=== PATIENT | male | born 2000 | race American Indian/Alaskan Native ===

== ENCOUNTER 2018-08-14 08:56 | Emergency (ER) | payer OTHER ==
[2018-08-14] MEDS ORDERED: PEPCID PO ONE (09:21)
[2018-08-14] MEDS ORDERED: DELTASONE PO ONE (09:21)
--- NOTE | 2018-08-14 09:21 | Emergency Department Report ---
ED General Adult HPI - General Chief complaint: Allergic Reaction Stated complaint: EYES SWOLLEN/POSS ALLERGIC REACTION Time Seen by Provider: 08/14/18 09:16 Source: patient, family, RN notes reviewed Mode of arrival: Ambulatory Limitations: No Limitations - History of Present Illness Initial comments: This is a 18-year-old gentleman. The patient is not known to this provider previously. The patient reports that he does not have a primary care doctor. The patient reports no chronic medical conditions. The patient presents to the emergency room with a complaint of sudden nontraumatic bilateral periorbital swelling, and sensation of neck tightness. The symptoms have been going on for around 12 hours. They're constant. There are improving. He took [id number] Benadryl at 1:00 in the morning. He denies headache, neck pain, chest pain, abdominal pain, shortness of breath, rash. No new travel, cream, colognes, or detergent. Patient and family are not certain of any new potential inciting agent. -: Sudden Location: head, neck Consistency: constant Improves with: none Worsens with: none - Related Data Previous Rx's Medication Instructions Recorded Last Taken Type EPINEPHrine [Epipen 2-Dat] 0.3 mg IM DAILY PRN #2 ml 08/14/18 Unknown Rx Famotidine [Pepcid] 20 mg PO BID #10 tablet 08/14/18 Unknown Rx diphenhydrAMINE [Benadryl] 25 mg PO Q8HR PRN #20 capsule 08/14/18 Unknown Rx predniSONE [Deltasone] 40 mg PO QDAY #8 tab 08/14/18 Unknown Rx Allergies Allergy/AdvReac Type Severity Reaction Status Date / Time No Known Allergies Allergy Unverified 08/14/18 09:29 ED Review of Systems ROS: Stated complaint: EYES SWOLLEN/POSS ALLERGIC REACTION Other details as noted in HPI Constitutional: denies: fever Eyes: denies: eye pain, eye discharge, vision change ENT: other (patient feels like his throat is tight. There is no dysphonia.). denies: ear pain, dental pain, hearing loss, epistaxis, congestion Respiratory: denies: cough Cardiovascular: denies: chest pain, palpitations Gastrointestinal: denies: abdominal pain, nausea, vomiting, diarrhea, hematemesis, melena Genitourinary: denies: dysuria Musculoskeletal: denies: back pain, arthralgia, myalgia Skin: denies: rash, lesions Neurological: denies: headache, weakness, numbness, paresthesias, confusion, abnormal gait, vertigo ED Past Medical Hx - Past Medical History Previous Medical History?: No - Surgical History Past Surgical History?: No - Medications Home Medications: Home Medications Medication Instructions Recorded Confirmed Last Taken Type EPINEPHrine [Epipen 2-Dat] 0.3 mg IM DAILY PRN #2 ml 08/14/18 Unknown Rx Famotidine [Pepcid] 20 mg PO BID #10 tablet 08/14/18 Unknown Rx diphenhydrAMINE [Benadryl] 25 mg PO Q8HR PRN #20 capsule 08/14/18 Unknown Rx predniSONE [Deltasone] 40 mg PO QDAY #8 tab 08/14/18 Unknown Rx ED Physical Exam - General Limitations: No Limitations General appearance: alert, in no apparent distress - Head Head exam: Present: atraumatic, normocephalic - Eye Eye exam: Present: PERRL, EOMI, periorbital swelling (there is nontender bilateral periorbital swelling.). Absent: normal appearance, scleral icterus, conjunctival injection, nystagmus - ENT ENT exam: Present: normal exam, normal orophraynx, mucous membranes moist, normal external ear exam, other (the patient is speaking in full sentences. There is no stridor. There is no dysphonia. There is no elevation of the base of the tongue.) - Neck Neck exam: Present: normal inspection, full ROM. Absent: tenderness, meningismus - Respiratory Respiratory exam: Present: normal lung sounds bilaterally. Absent: respiratory distress - Cardiovascular Cardiovascular Exam: Present: normal rhythm, bradycardia, normal heart sounds. Absent: tachycardia, irregular rhythm, systolic murmur, diastolic murmur, rubs, gallop - GI/Abdominal GI/Abdominal exam: Present: soft. Absent: distended, tenderness, guarding, rebound, rigid, pulsatile mass - Rectal Rectal exam: Present: deferred - Extremities Exam Extremities exam: Present: normal inspection, full ROM, normal capillary refill, other (2+ pulses noted in the bilateral upper, lower extremities. Compartments soft. No long bony tenderness. The pelvis is stable.). Absent: pedal edema, joint swelling, calf tenderness - Back Exam Back exam: Present: normal inspection, full ROM. Absent: tenderness, CVA tenderness (R), paraspinal tenderness - Neurological Exam Neurological exam: Present: alert, oriented X3, other (Extraocular movements intact. Tongue midline. No facial droop. Facial sensation intact to light touch in the V1, V2, V3 distribution bilaterally. 5 and 5 strength in 4 extremities.. Sensation is intact to light touch in 4 extremities.). Absent: motor sensory deficit - Psychiatric Psychiatric exam: Present: normal affect, normal mood - Skin Skin exam: Present: warm, dry, intact, normal color. Absent: rash ED Course Vital Signs 08/14/18 08/14/18 08:58 11:26 Temperature 97.5 F L Pulse Rate 52 L 51 L Respiratory 18 16 Rate Blood Pressure 143/67 Blood Pressure 134/92 [Left] O2 Sat by Pulse 98 100 Oximetry - Reevaluation(s) Reevaluation #1: 08/14/18 10:57 Differential diagnosis, including but not limited to: Allergies Assessment and plan: 18-year-old gentleman with nontraumatic bilateral periorbital swelling, and reported sensation of throat discomfort. The patient is afebrile with reassuring vital signs with no stridor. He is resting comfortably in his stretcher. Skin examination is unremarkable. Pulmonary examination is unremarkable Patient was treated appropriately with H2 antagonists and steroids. No obvious renal or hepatic insufficiency noted on laboratory studies. Glucose of 73 reviewed and appreciated. Patient given fluid by mouth, and Accu-Chek improved. Patient medically suitable to follow up with an outpatient primary care doctor or market research specialist for dedicated skin testing. 08/14/18 11:00 Reevaluation #2: 08/14/18 11:42 Patient feeling improved. No acute distress. Repeat vital signs appreciated. Tolerating oral feeds without difficulty. Suitable for discharge at this point in time with outpatient follow-up ED Medical Decision Making - Lab Data Result diagrams: 08/14/18 09:40 Vital Signs 08/14/18 08:58 Temperature 97.5 F L Pulse Rate 52 L Respiratory 18 Rate Blood Pressure 143/67 O2 Sat by Pulse 98 Oximetry Lab Results 08/14/18 Range/Units 09:40 Sodium 142 (137-145) mmol/L Potassium 4.1 (3.6-5.0) mmol/L Chloride 106.8 (98-107) mmol/L Carbon Dioxide 26 (22-30) mmol/L Anion Gap 13 mmol/L BUN 10 (9-20) mg/dL Creatinine 1.0 (0.8-1.5) mg/dL Estimated GFR > 60 ml/min BUN/Creatinine Ratio 10 % Glucose 73 L (75-100) mg/dL Calcium 8.4 (8.4-10.2) mg/dL Magnesium 2.00 (1.7-2.3) mg/dL Total Bilirubin < 0.20 (0.1-1.2) mg/dL AST 17 (5-40) units/L ALT 11 (7-56) units/L Alkaline Phosphatase 64 (35-129) units/L Total Creatine Kinase 270 H (55-170) units/L Total Protein 6.0 L (6.3-8.2) g/dL Albumin 3.6 L (3.9-5) g/dL Albumin/Globulin Ratio 1.5 % Respirations on my exam 12-15 breaths per minute Critical care attestation.: If time is entered above; I have spent that time in minutes in the direct care of this critically ill patient, excluding procedure time. ED Disposition Clinical Impression: Allergic reaction Disposition: DC-01 TO HOME OR SELFCARE Is pt being admited?: No Does the pt Need Aspirin: No Condition: Good Instructions: Anaphylaxis (ED) Additional Instructions: Take the medications as needed/directed. Do not use the epinephrine pen unless patient develops the inability to speak, or inability to breathe or inability to talk. If any of these symptoms develop, use the epinephrine pen as directed, and contact 911 right away. Patient most likely experiencing an allergic reaction. Many things can cause allergies. I recommend the patient follow up with an market research specialist or automobile service station manager within the next 4 weeks for dedic ated skin testing to ascertain causative agent of patient's allergies. Follow up with her primary care doctor within the next 6-8 weeks for general medical care. Please return to the emergency room right away with new, worsening or different symptoms, or symptoms not present on the initial ER evaluation. Prescriptions: diphenhydrAMINE [Benadryl] 25 mg PO Q8HR PRN #20 capsule PRN Reason: Allergic Reaction predniSONE [Deltasone] 40 mg PO QDAY #8 tab EPINEPHrine [Epipen 2-Dat] 0.3 mg IM DAILY PRN #2 ml PRN Reason: Allergic Reaction Famotidine [Pepcid] 20 mg PO BID #10 tablet Referrals: SILVA HERNANDEZ MD [Referring] - 3-5 Days JESSICA RAMIREZ MD [Referring] - 3-5 Days REI BROOKS MD [Staff Physician] - 3-5 Days [facility] [Provider Group] - 3-5 Days Forms: Accompanied Note, Work/School Release Form(ED)
[2018-08-14 10:27] LABS: Alanine Aminotransferase 11 units/L (7-56); Albumin 3.6 g/dL (3.9-5); BUN/Creatinine Ratio 10; Blood Urea Nitrogen 10 mg/dL (9-20); Calcium 8.4 mg/dL (8.4-10.2); Hemolysis Index 20
[2018-08-14 11:27] VITALS: BP 134/92
== END 2018-08-14 12:19 | disposition home or self-care (01) ==
LOC: ED 08:56
DX: T78.40XA Allergy, unspecified, initial encounter (principal); M54.2 Cervicalgia; X58.XXXA Exposure to other specified factors, initial encounter
CPT/HCPCS: 36415; 80053; 82550; 82962; 83735; 99283; J7512

== ENCOUNTER 2018-10-13 21:27 | Emergency (ER) | payer OTHER ==
[2018-10-13] MEDS ORDERED: BOOSTRIX IM ONE (22:42)
--- NOTE | 2018-10-13 22:43 | Event Note ---
ED Screening Note Date of service: 10/13/18 Time: 22:38 ED Screening Note: This is a 18 y.o. M. that presents to the ER with laceration to right palm while opening a can at home around 2029. Tetanus not UTD. Current smoker. This initial assessment/diagnostic orders/clinical plan/treatment(s) is/are subject to change based on patients health status, clinical progression and re- assessment by fellow clinical providers in the ED. Further treatment and workup at subsequent clinical providers discretion. Patient/guardian urged not to elope from the ED as their condition may be serious if not clinically assessed and managed. Initial orders include: XR right hand Boostrix vaccine
--- NOTE | 2018-10-13 23:23 | XRay Report ---
RIGHT HAND 3 VIEWS INDICATION: laceration palm between 1st 2nd metatarsal. COMPARISON: No relevant prior imaging study available. FINDINGS: There is no acute skeletal abnormality. Soft tissue swelling is seen between the index and long finge r metacarpophalangeal articulations. No foreign bodies. IMPRESSION: 1. No fracture or foreign body. Signer Name: Abdirahman Coleman MD Signed: 10/13/2018 11:18 PM Workstation Name: [id number]
[2018-10-14] MEDS ORDERED: TYLENOL #3 PO ONE (03:40)
[2018-10-14] MEDS ORDERED: IBUPROFEN PO ONE (03:40)
[2018-10-14] MEDS ORDERED: XYLOCAINE 1% MPF 5 mL INFILTRATI ONE (03:41)
--- NOTE | 2018-10-14 04:42 | Emergency Department Report ---
- General Chief Complaint: Wound/Laceration Stated Complaint: HAND LAC Time Seen by Provider: 10/13/18 22:38 Source: patient Mode of arrival: Ambulatory Limitations: No Limitations - History of Present Illness Initial Comments: Patient is a 18-year-old -Indian male with no past medical history who presents to the ED with complaint of acute onset persistent severe right palm pain from a bleeding laceration on the right palm after he accidentally cut his right palm when opening a can about 8 hours ago. Patient states that the pain and bleeding have been persistent and intermittent. Patient denies numbness, tingling or weakness of the right hand. The patient also states that he is up-to-date with his tetanus vaccination having received one 2 years ago. Patient denies nausea, vomiting, dizziness, headache, chest pain or shortness of breath. -: Sudden, hour(s) (8) Location: other (right palm laceration) Extremity Location: Right: Hand (Right palm laceration with pain) 1 - Right palm laceration with pain and bleeding Place: home Patient Tetanus UTD: Yes (2 years ago received Tetanus vaccination) Context: accidental Associated Symptoms: pain. denies: loss of feeling/numbness, suspect foreign body present, unable to move injured part, weakness followed by dizziness, nausea/vomiting, fever, other - Related Data Previous Rx's Medication Instructions Recorded Last Taken Type EPINEPHrine [Epipen 2-Dat] 0.3 mg IM DAILY PRN #2 ml 08/14/18 Unknown Rx Famotidine [Pepcid] 20 mg PO BID #10 tablet 08/14/18 Unknown Rx diphenhydrAMINE [Benadryl] 25 mg PO Q8HR PRN #20 capsule 08/14/18 Unknown Rx predniSONE [Deltasone] 40 mg PO QDAY #8 tab 08/14/18 Unknown Rx Acetaminophen/Codeine [Tylenol 1 tab PO Q6H PRN #12 tab 10/14/18 Unknown Rx /Codeine # 3 tab] Ibuprofen [Motrin] 800 mg PO Q6HR PRN #20 tablet 10/14/18 Unknown Rx cephALEXin [Keflex] 500 mg PO Q8HR #30 cap 10/14/18 Unknown Rx Allergies Allergy/AdvReac Type Severity Reaction Status Date / Time No Known Allergies Allergy Unverified 08/14/18 09:29 ED Review of Systems ROS: Stated complaint: HAND LAC Other details as noted in HPI Constitutional: denies: chills, fever Eyes: denies: eye pain, eye discharge, vision change ENT: denies: ear pain, throat pain Respiratory: denies: cough, shortness of breath, wheezing Cardiovascular: denies: chest pain, palpitations Endocrine: no symptoms reported Gastrointestinal: denies: abdominal pain, nausea, diarrhea Genitourinary: denies: urgency, dysuria Musculoskeletal: arthralgia, other (right palm pain due to bleeding laceration). denies: back pain, joint swelling Skin: other (Bleedinfg laceration and pain on right palm). denies: rash, lesions Neurological: denies: headache, weakness, paresthesias Psychiatric: denies: anxiety, depression Hematological/Lymphatic: denies: easy bleeding, easy bruising ED Past Medical Hx - Past Medical History Previous Medical History?: No - Surgical History Past Surgical History?: No - Social History Smoking Status: Current Every Day Smoker - Medications Home Medications: Home Medications Medication Instructions Recorded Confirmed Last Taken Type EPINEPHrine [Epipen 2-Dat] 0.3 mg IM DAILY PRN #2 ml 08/14/18 Unknown Rx Famotidine [Pepcid] 20 mg PO BID #10 tablet 08/14/18 Unknown Rx diphenhydrAMINE [Benadryl] 25 mg PO Q8HR PRN #20 capsule 08/14/18 Unknown Rx predniSONE [Deltasone] 40 mg PO QDAY #8 tab 08/14/18 Unknown Rx Acetaminophen/Codeine [Tylenol 1 tab PO Q6H PRN #12 tab 10/14/18 Unknown Rx /Codeine # 3 tab] Ibuprofen [Motrin] 800 mg PO Q6HR PRN #20 tablet 10/14/18 Unknown Rx cephALEXin [Keflex] 500 mg PO Q8HR #30 cap 10/14/18 Unknown Rx ED Physical Exam - General Limitations: No Limitations General appearance: alert, in no apparent distress - Head Head exam: Present: atraumatic, normocephalic, normal inspection - Eye Eye exam: Present: normal appearance, PERRL, EOMI. Absent: scleral icterus, conjunctival injection, nystagmus Pupils: Present: normal accommodation - ENT ENT exam: Present: normal exam, normal orophraynx, mucous membranes moist, TM's normal bilaterally, normal external ear exam - Neck Neck exam: Present: normal inspection, full ROM - Respiratory Respiratory exam: Present: normal lung sounds bilaterally. Absent: respiratory distress, wheezes, rhonchi, stridor, chest wall tenderness, accessory muscle use, decreased breath sounds, prolonged expiratory - Cardiovascular Cardiovascular Exam: Present: normal rhythm, bradycardia, normal heart sounds. Absent: systolic murmur, diastolic murmur, rubs, gallop - GI/Abdominal GI/Abdominal exam: Present: soft, normal bowel sounds. Absent: tenderness, rebound, hyperactive bowel sounds, hypoactive bowel sounds, organomegaly - Rectal Rectal exam: Present: deferred - Extremities Exam Extremities exam: Present: normal inspection, full ROM, tenderness (Palpable right hand tenderness due to a bleeding 3 cm laceration on right palm), normal capillary refill - Back Exam Back exam: Present: normal inspection, full ROM. Absent: tenderness, CVA tenderness (L), muscle spasm, vertebral tenderness - Neurological Exam Neurological exam: Present: alert, oriented X3, CN II-XII intact, normal gait, reflexes normal - Psychiatric Psychiatric exam: Present: normal affect, normal mood - Skin Skin exam: Present: warm, dry, intact, normal color, other (Bleeding right palm 3 cm laceration). Absent: rash ED Course Vital Signs 10/13/18 22:42 Temperature 98.9 F Pulse Rate 59 L Respiratory 18 Rate Blood Pressure 120/58 O2 Sat by Pulse 97 Oximetry - Reevaluation(s) Reevaluation #1: 10/14/18 04:49 Patient is alert and oriented 3 and is not in distress but pain. Patient was treated for pain in the ED and had the right palm laceration sutured per protocol. Patient tolerated the procedure well after they right palm laceration was anesthetized with a local anesthesia, 1% lidocaine solution. Patient was discharged home on pain medication and prophylactic antibiotics and patient advised to follow up with his primary care physician in 7-10 days for reevaluation. Patient advised to return to the ED immediately if symptoms get worse, otherwise return to the ED or to his primary care physician in 12-14 days for suture removal. ED Medical Decision Making - Medical Decision Making Patient is alert and oriented 3 and is not in distress but pain. Patient was treated for pain in the ED and had the right palm laceration sutured per protocol. Patient tolerated the procedure well after they right palm laceration was anesthetized with a local anesthesia, 1% lidocaine solution. Patient was discharged home on pain medication and prophylactic antibiotics and patient advised to follow up with his primary care physician in 7-10 days for reevaluation. Patient advised to return to the ED immediately if symptoms get worse, otherwise return to the ED or to his primary care physician in 12-14 days for suture removal. - Differential Diagnosis hand laceration; tendon injury, puncture wound Critical care attestation.: If time is entered above; I have spent that time in minutes in the direct care of this critically ill patient, excluding procedure time. ED Disposition Clinical Impression: Laceration of right hand without foreign body Qualifiers: Encounter type: initial encounter Qualified Code(s): S61.411A - Laceration without foreign body of right hand, initial encounter Disposition: TO HOME OR SELFCARE Is pt being admited?: No Does the pt Need Aspirin: No Condition: Stable Instructions: Laceration (ED), Suture Care (ED) Additional Instructions: Take medications with food, drink plenty of fluids and follow-up with your primary care physician in 7-10 days for reevaluation. Return to the ED in 12-14 days for suture removal. Return to the ED immediately if symptoms get worse. Prescriptions: cephALEXin [Keflex] 500 mg PO Q8HR #30 cap Ibuprofen [Motrin] 800 mg PO Q6HR PRN #20 tablet PRN Reason: Pain , Severe (7-10) Acetaminophen/Codeine [Tylenol /Codeine # 3 tab] 1 tab PO Q6H PRN #12 tab PRN Reason: Pain , Severe (7-10) Referrals: [facility] [Outside] - 3-5 Days Time of Disposition: 04:40 Print Language: AUSTRALIAN
[2018-10-14 05:05] VITALS: BP 114/69
== END 2018-10-14 05:08 | disposition home or self-care (01) ==
LOC: ED 21:27
DX: S61.411A Laceration without foreign body of right hand, initial encounter (principal); F17.200 Nicotine dependence, unspecified, uncomplicated; W45.8XXA Other foreign body or object entering through skin, initial encounter; Y93.89 Activity, other specified; Y92.89 Other specified places as the place of occurrence of the external cause; Y99.8 Other external cause status

== ENCOUNTER 2018-10-30 10:43 | Emergency (ER) | payer OTHER ==
[2018-10-30 10:53] VITALS: BP 132/66
--- NOTE | 2018-10-30 11:17 | Emergency Department Report ---
Suture/Staple Removal - [facility] Chief Complaint: Laceration/Recheck/Suture Stated Complaint: SUTURE REMOVAL Time Seen by Provider: 10/30/18 11:13 When Sutures or Humberto Placed: >14 Days Ago Wound Location: Right hand ED Review of Systems ROS: Stated complaint: SUTURE REMOVAL Other details as noted in HPI Comment: All other systems reviewed and negative ED Past Medical Hx - Past Medical History Previous Medical History?: No - Surgical History Past Surgical History?: No - Social History Smoking Status: Current Some Day Smoker Substance Use Type: None, Marijuana - Medications Home Medications: Home Medications Medication Instructions Recorded Confirmed Last Taken Type EPINEPHrine [Epipen 2-Dat] 0.3 mg IM DAILY PRN #2 ml 08/14/18 Unknown Rx Famotidine [Pepcid] 20 mg PO BID #10 tablet 08/14/18 Unknown Rx diphenhydrAMINE [Benadryl] 25 mg PO Q8HR PRN #20 capsule 08/14/18 Unknown Rx predniSONE [Deltasone] 40 mg PO QDAY #8 tab 08/14/18 Unknown Rx Acetaminophen/Codeine [Tylenol 1 tab PO Q6H PRN #12 tab 10/14/18 Unknown Rx /Codeine # 3 tab] Ibuprofen [Motrin] 800 mg PO Q6HR PRN #20 tablet 10/14/18 Unknown Rx cephALEXin [Keflex] 500 mg PO Q8HR #30 cap 10/14/18 Unknown Rx Suture Removal Exam - Exam General: Vital signs noted. No distress. Alert and acting appropriately. Wound: No Pathologic Erythema, No Tenderness, No Drainage, No Pus, No Wound Dehiscence Other Systems: All other systems reviewed and are unremarkable. ED Course Vital Signs 10/30/18 10:50 Temperature 98.0 F Pulse Rate 43 L Respiratory 18 Rate Blood Pressure 132/66 [Left] O2 Sat by Pulse 100 Oximetry ED Recheck MDM - Medical Decision Making 1-year-old male presents with suture removal to the right hand. She is without any problems Critical care attestation.: If time is entered above; I have spent that time in minutes in the direct care of this critically ill patient, excluding procedure time. ED Disposition Clinical Impression: Visit for suture removal Disposition: DC-01 TO HOME OR SELFCARE Is pt being admited?: No Does the pt Need Aspirin: No Condition: Stable Instructions: Acute Wound Care (ED) Additional Instructions: Make sure to follow up with the primary care physician as discussed. Take all your medications as you've been prescribed. If you have any worsening symptoms or develop new symptoms please return to ED immediately. Forms: Accompanied Note, Work/School Release Form(ED) Time of Disposition: 11:17
== END 2018-10-30 12:07 | disposition home or self-care (01) ==
LOC: ED 10:43
DX: S61.411D Laceration without foreign body of right hand, subsequent encounter (principal); F17.200 Nicotine dependence, unspecified, uncomplicated; F12.10 Cannabis abuse, uncomplicated; Z79.1 Long term (current) use of non-steroidal anti-inflammatories (NSAID); W26.0XXD Contact with knife, subsequent encounter